=== PATIENT | male | born 1980 | race African-American/Black ===

== ENCOUNTER 2020-10-08 13:17 | Inpatient (IN) | payer OTHER ==
[~2020-10-08] VITALS: Ht 185.4 cm; Wt 95.5 kg
[~2020-10-08 13:17] MED LIST: GLUCOPHAGE500 MG/TAB PO
[2020-10-08 16:18] LABS: HEMOGLOBIN 13.3 g/dl (13.5-18.0); MEAN CELL VOLUME 81 fl (80.0-100.0); MEAN CORPUSCULAR HEMOGLOBIN 27 pg (27.0-31.0); MEAN CORPUSCULAR HGB CONC 33 g/dl (33.0-37.0); MEAN PLATELET VOLUME 10.3 fl (7.4-10.4); PLATELET COUNT 466 K/mm3 (130-400); RED BLOOD COUNT 4.93 M/mm3 (4.20-5.60); REDCELL DISTRIBUTION WIDTH-CV 11.5 % (11.5-14.5)
[2020-10-08 16:29] LABS: ALANINE AMINOTRANSFERASE 24 U/L (4-49); ALBUMIN 3.8 gm/dL (3.5-5.0); ALKALINE PHOSPHATASE 184 U/L (50-136); ANION GAP 13 mmol/L (7-16); AST,SGOT 27 U/L (15-37); BILIRUBIN,TOTAL 0.7 mg/dL (0.0-1.0); BLOOD UREA NITROGEN 24 mg/dL (9-20); CALCIUM 9.3 mg/dL (8.4-10.2); CARBON DIOXIDE 28 mmol/L (22-30); CHLORIDE 90 mmol/L (98-107); CREATININE, serum 1.08 (0.66-1.25); POTASSIUM 4.8 mmol/L (3.4-5.0); SODIUM 131 mmol/L (137-145); TOTAL PROTEIN 8.2 gm/dL (6.4-8.2)
[2020-10-08 16:32] LABS: GLUCOSE 477 mg/dL (74-106)
[2020-10-08 16:44] LABS: TROPONIN-I < 0.012 ng/mL (0.000-0.035)
[2020-10-08 16:47] LABS: BAND 3 % (0-10); EOSINOPHIL 1 % (0-4); LYMPHOCYTE 7 % (20.0-51.0); NEUTROPHILS 86 % (42.0-75.2); PLATELET ESTIMATE INCREASED (NORMAL)
[2020-10-08 17:30] LABS: ARTERIAL BLD GAS O2 SATURATION 96.8 % (92-100); ARTERIAL BLD GAS TCO2 CT 22.1; ARTERIAL BLOOD GAS BASE EXCESS -2.5 (-2-2); ARTERIAL BLOOD GAS HCO3 21.1 meq/L (22-26); ARTERIAL BLOOD GAS PCO2 33.1 mmHg (35-45); ARTERIAL BLOOD GAS PO2 87.8 mmHg (80-100); ARTERIAL BLOOD GAS pH 7.42 (7.35-7.45)
[2020-10-08 19:35] LABS: COLLECTION METHOD CLEAN CATCH
[2020-10-08 19:42] LABS: MUCOUS Present /lpf; PH 5 (5-8); SQUAMOUS EPITHELIAL None Seen /hpf; URINE APPEARANCE Clear; URINE BACTERIA None Seen /hpf; URINE BILIRUBIN Negative (NEGATIVE); URINE BLOOD 2+ (NEGATIVE); URINE COLOR Straw; URINE GLUCOSE 3+ (NEGATIVE); URINE KETONE 1+ (NEGATIVE); URINE LEUKOCYTE ESTERASE Trace (NEGATIVE); URINE NITRATE Negative (NEGATIVE); URINE PROTEIN(semi-quant) 1+ (NEGATIVE); URINE UROBILINOGEN Negative (NEGATIVE)
--- NOTE | 2020-10-08 21:40 | NUR ---
RECEIVED REPORT FROM ED NURSEJOHNSON. AWAITING PATIENT'S ARRIVAL.
--- NOTE | 2020-10-08 22:00 | NUR ---
PATIENT ARRIVED/ADMITTED TO ROOM 329 PER CART ACCOMPANIED BY ER PCT. IV ABX INFUSING TO [facility] IV SITE WITH NO PROBLEMS AT THIS TIME.
[2020-10-08 22:11] VITALS: BP 153/92; PULSE 111; TEMP 98.5
--- NOTE | 2020-10-08 22:36 | NUR ---
Vancomycin Initial Dosing Pharmacy Note Ordering provider: Tk Yen J., MD 39 yo M Indication: SSTI (5 DAYS) goal: 10-20 Hx: None identified BMI: 29.1 Wt: 100 kg SCr: 1.08 estCrCl ~131 ml/min t 1/2~ 6h Tmax: 98.9 WBC: 23.3 LA WNL CRP: 41.5 Micro - PENDING LE CT reporting edematous semitendinousus muscle with fluid collection, possible abscess/phlegmon Pt loaded with vanco 2gm (20mg/kg) x1. WILL THEN START A MAINTENANCE REGIMEN OF 1.25 GM Q8H PT IS YOUNG WITH GOOD RENAL FUNCTION. WILL MONITOR MICRO AND RENAL FOR NEED TO ADJUST CURRENT THERAPY. THANK YOU FOR THIS DOSING CONSULT!
[2020-10-08 23:56] VITALS: BP 147/77; PULSE 113; TEMP 99.7
[2020-10-09 04:18] VITALS: BP 156/86; PULSE 112; TEMP 100.2
[2020-10-09 06:43] LABS: HEMOGLOBIN 12.1 g/dl (13.5-18.0); MEAN CELL VOLUME 82 fl (80.0-100.0); MEAN CORPUSCULAR HEMOGLOBIN 27 pg (27.0-31.0); MEAN CORPUSCULAR HGB CONC 33 g/dl (33.0-37.0); MEAN PLATELET VOLUME 10.3 fl (7.4-10.4); PLATELET COUNT 446 K/mm3 (130-400); RED BLOOD COUNT 4.45 M/mm3 (4.20-5.60); REDCELL DISTRIBUTION WIDTH-CV 11.7 % (11.5-14.5)
[2020-10-09 06:57] LABS: ALBUMIN 3.4 gm/dL (3.5-5.0); BILIRUBIN,TOTAL 0.6 mg/dL (0.0-1.0); CALCIUM 8.7 mg/dL (8.4-10.2); CREATININE, serum 0.92 (0.66-1.25); POTASSIUM 4.5 mmol/L (3.4-5.0); TOTAL PROTEIN 7.3 gm/dL (6.4-8.2)
--- NOTE | 2020-10-09 07:00 | NUR ---
Report received from MCKENZIE Ford. PT in bed resting, denies needs, IVF to RA/C. Will continue to monitor
--- NOTE | 2020-10-09 07:00 | NUR ---
CHANGE OF SHIFT REPORT GIVEN TO DAY SHIFT NURSE, CAT
[2020-10-09 07:23] LABS: HEMATOCRIT 36.6 % (42.0-52.0)
[2020-10-09 07:35] LABS: BAND 3 % (0-10); LYMPHOCYTE 4 % (20.0-51.0); NEUTROPHILS 81 % (42.0-75.2); PLATELET ESTIMATE INCREASED (NORMAL)
[2020-10-09 07:49] VITALS: BP 107/68; BP 165/91; PULSE 107; PULSE 82; TEMP 98.4
--- NOTE | 2020-10-09 08:58 | NUR ---
Assessment charted.PT c/o pain at 10/10 to RLE, appears calm and alert in bed and not grimacing or crying out. PRN pain meds given. Discussed hbA1C levels as well as WBC and sodium lab values. Pt has tenderness and warmth to R hamstring area. IV antibiotics to R A/C. Discussed no free water to help bring up sodium level. Will continue to monitor.
[2020-10-09 12:08] VITALS: BP 163/87; PULSE 111; TEMP 97.6
--- NOTE | 2020-10-09 14:32 | NUR ---
Called Kayla BECKFORD regarding pain medications, order received for other options.
--- NOTE | 2020-10-09 14:58 | NUR ---
Initial visit; Patient thanked Assistant Director Of Public Works for looking in on him and offering God's blessings.
--- NOTE | 2020-10-09 15:01 | NUR ---
Logging Tractor Operator met with the patient to complete intake. The patient lives alone in [place]. The patient denies DME use and is independent with ADLs. The patient has a new patient appointment in October at [facility] and believes it is Dr. Shirley. The patient receives medications from [facility]. The patient does not have advanced directives. He his parents live locally, [facility]. The patient's brother will provide transporation at discharge. ELIZABETH contacted ALESIA Houser with [facility] regarding patient appointment, left message. There are no additional needs at this time.
--- NOTE | 2020-10-09 15:28 | NUR ---
Notified pt of plan for transfer if bed available. Pt calling family to update them. Will continue to monitor.
--- NOTE | 2020-10-09 16:31 | NUR ---
Kayla CAIN FOREIGN POLICY OFFICER in to visit patient at this time and update with current transfer status. Waiting to hear back from [facility] and [facility]. Pt feels he is good with this plan but is feeling very anxious about all of this news. Resting in bed, feels PO pain pills manage pain better. Denies needs, will continue to monitor and give bedside shift report to nightshift nruse who will resume care.
[2020-10-09 16:50] VITALS: BP 136/85; PULSE 102; TEMP 99.3
--- NOTE | 2020-10-09 18:28 | NUR ---
Pt resting in bed, doing well, aware of no transfer to [facility] and awaiting response from [facility]. Will give bedside shift report to nightshift nurse who will resume care.
--- NOTE | 2020-10-09 18:45 | NUR ---
PT REPORTS PAIN LEVEL 7-8/10 RT THIGH. MS 2MG IV GIVEN FOR BREAKTHROUGH PAIN. NO NUMBNESS OR TINGLING TO RLE. FOOT WTT. IMMEDIATE CAP REFILL.
[2020-10-09 20:39] VITALS: BP 148/81; PULSE 108; TEMP 100.3
[2020-10-09 23:25] VITALS: BP 147/89; PULSE 112; TEMP 100.1
--- NOTE | 2020-10-10 01:08 | NUR ---
GAVE TYLENOL TO HOLD OVER TILL NEXT NORCO DUE. TEMP 100.3. ENC COUGH DEEP BREATH. PROVIDED WRITTEN EDUCATION MULTIPLE TOPICS. PT REORTS URINE STREAM IS SLOW. YELLOW AND CLEAR. NON ODOROUS. DENIES BLADDER RETENTION.
[2020-10-10 04:29] VITALS: BP 154/92; PULSE 110; TEMP 98.7
[2020-10-10 08:48] VITALS: BP 159/99; PULSE 105; TEMP 98.8
[2020-10-10 13:39] VITALS: BP 155/97; PULSE 100; TEMP 99.2
[2020-10-10 15:47] VITALS: BP 160/96; PULSE 102; TEMP 99
--- NOTE | 2020-10-10 16:55 | NUR ---
HOSPITALIST AT BEDSIDE. SEE ORDERS.
[2020-10-10 17:20] LABS: HEMOGLOBIN 11.3 g/dl (13.5-18.0); MEAN CELL VOLUME 81 fl (80.0-100.0); MEAN CORPUSCULAR HEMOGLOBIN 28 pg (27.0-31.0); MEAN CORPUSCULAR HGB CONC 34 g/dl (33.0-37.0); MEAN PLATELET VOLUME 10.1 fl (7.4-10.4); PLATELET COUNT 413 K/mm3 (130-400); REDCELL DISTRIBUTION WIDTH-CV 11.7 % (11.5-14.5)
[2020-10-10 17:34] LABS: BILIRUBIN,TOTAL 0.4 mg/dL (0.0-1.0); CALCIUM 8.6 mg/dL (8.4-10.2); CREATININE, serum 0.92 (0.66-1.25); POTASSIUM 4.3 mmol/L (3.4-5.0); TOTAL PROTEIN 6.7 gm/dL (6.4-8.2)
[2020-10-10 17:38] LABS: BAND 4 % (0-10); EOSINOPHIL 1 % (0-4); LYMPHOCYTE 4 % (20.0-51.0); NEUTROPHILS 80 % (42.0-75.2); PLATELET ESTIMATE INCREASED (NORMAL)
[2020-10-10 18:02] LABS: C-REACTIVE PROTEIN 41.2 mg/dL (0.0-0.9)
--- NOTE | 2020-10-10 18:30 | NUR ---
DURING SHIFT REPORT W/ SANDY FRANCIS RN , DR GIMENEZ HERE WITH NEW VERBAL ORDERS. SEE INSULIN ORDERS. PT REPORTS PAIN LEVEL IS WELL CONTROLLED AT THIS TIME WHILE RESTING. ACCUCHECK PRIOR TO PM MEAL WAS 345.
--- NOTE | 2020-10-10 19:35 | NUR ---
RECHECKED ACCUCHECK 1HR POST LAST INSULIN GIVEN AND NOTIFIED DR GIMENEZ. NEW ORDERS FOR NOVOLOG 10UNITS IV. GAVE INCREASED DOSE OF LEVEMIER SQ AT THIS TIME. PT ASYMPTOMATIC OF HYPERGLYCEMIA. GAVE NORCO PER REQUEST POST AMB TO BR. VOIDING 450CC CLEAR YELLOW URINE W/O DIFFICULTY.
[2020-10-10 20:00] VITALS: BP 153/91; PULSE 105; TEMP 99.1
--- NOTE | 2020-10-10 20:30 | NUR ---
10 UNITS IV GIVEN BY JOSE M CHA RN.
--- NOTE | 2020-10-10 21:30 | NUR ---
ACCUCHECK 1 HR POST 10UNITS NOVOLOG IV GIVEN- 180.
[2020-10-10 22:58] VITALS: BP 13/81; BP 130/81; PULSE 104; TEMP 99.2
--- NOTE | 2020-10-10 23:39 | NUR ---
PT RESTING QUIETLY. NO DISTRESS.
[2020-10-11 04:00] VITALS: BP 156/95; PULSE 102; TEMP 99.1
--- NOTE | 2020-10-11 06:15 | NUR ---
PT SLEEPING. NO DISTRESS. DR LYLE HERE TO VISIT WITH PT.
[2020-10-11 07:27] VITALS: BP 147/94; PULSE 95; TEMP 97.9
[2020-10-11 09:51] LABS: MEAN CELL VOLUME 81 fl (80.0-100.0); MEAN CORPUSCULAR HEMOGLOBIN 27 pg (27.0-31.0); MEAN CORPUSCULAR HGB CONC 34 g/dl (33.0-37.0); MEAN PLATELET VOLUME 9.8 fl (7.4-10.4); PLATELET COUNT 434 K/mm3 (130-400); RED BLOOD COUNT 4.01 M/mm3 (4.20-5.60); REDCELL DISTRIBUTION WIDTH-CV 11.9 % (11.5-14.5)
[2020-10-11 10:04] LABS: ALBUMIN 2.9 gm/dL (3.5-5.0); BILIRUBIN,TOTAL 0.4 mg/dL (0.0-1.0); CALCIUM 8.5 mg/dL (8.4-10.2); CREATININE, serum 1.03 (0.66-1.25); POTASSIUM 4.1 mmol/L (3.4-5.0); TOTAL PROTEIN 6.7 gm/dL (6.4-8.2)
[2020-10-11 10:22] LABS: HEMATOCRIT 32.6 % (42.0-52.0)
--- NOTE | 2020-10-11 10:35 | NUR ---
Received call from lab with critical WBC count of 22.8. This was called to Dr. Cline and she voiced understanding and will see patient. No changes at this time.
--- NOTE | 2020-10-11 11:01 | NUR ---
Did assessment on patient and observed two small calloused/ulcers on the plantar portion of right foot and one in between the 2nd/3rd digits of toes to right foot. Sock was stuck to one area with blood and this nurse cleaned, patted dry and applied Aquacel AG over open areas and secured with bandaids. Left foot had one area to plantar portion of foot that was also calloused and slightly open. Did the same above dressing to area. This was reported to Dr. Jeong. This patient is also on a Free Water Restriction. This was added to the Diet order. Patient has been drinking his Power Caitlyn and Gatorade and has not been drinking any free water. Will continue to monitor.
[2020-10-11 11:05] VITALS: BP 147/93; PULSE 98; TEMP 98.3
[2020-10-11 11:20] LABS: BAND 10 % (0-10); EOSINOPHIL 4 % (0-4); LYMPHOCYTE 5 % (20.0-51.0); NEUTROPHILS 74 % (42.0-75.2)
[2020-10-11 11:21] LABS: PLATELET ESTIMATE INCREASED (NORMAL)
[2020-10-11 16:00] VITALS: BP 158/90; PULSE 102; TEMP 98.3
[2020-10-11 19:35] VITALS: BP 145/88; PULSE 99; TEMP 99.5
--- NOTE | 2020-10-11 20:40 | NUR ---
Patient in bed resting. Alert and oriented x 3. Assessment complete. States pain to right thigh 5/10. Right thigh is firm to touch. Patient states it is better than previous days. Edema noted to RLE. INT to right AC. Denies further needs at this time.
[2020-10-12] VITALS (7 sets, daily range): BP systolic 145–168; BP diastolic 85–97; PULSE 92–102; TEMP 97.7–99.3
--- NOTE | 2020-10-12 01:23 | NUR ---
Patient up to restroom, stand by assist. Denies further needs at this time. Requested pain meds for pain 03/27, medication given at this time.
--- NOTE | 2020-10-12 04:40 | NUR ---
Patient reports pain 6/10 to right thigh, medicaitions given at this time. Denies further needs at this time.
--- NOTE | 2020-10-12 05:47 | NUR ---
Patient has done well throughout the night. Minimal needs. Antibiotics infusing intermittently throughout the night. Has been up to restroom with SBA. Pain medications given for right thigh pain. Denies further needs at this time. Will report off to day shift.
--- NOTE | 2020-10-12 07:00 | NUR ---
Report received from MCKENZIE Rodriguez. PT in bed resting with eyes closed, will continue to monitor.
[2020-10-12 07:31] LABS: HEMOGLOBIN 10.9 g/dl (13.5-18.0); MEAN CELL VOLUME 82 fl (80.0-100.0); MEAN CORPUSCULAR HEMOGLOBIN 26 pg (27.0-31.0); MEAN CORPUSCULAR HGB CONC 32 g/dl (33.0-37.0); MEAN PLATELET VOLUME 9.7 fl (7.4-10.4); PLATELET COUNT 466 K/mm3 (130-400); RED BLOOD COUNT 4.14 M/mm3 (4.20-5.60); REDCELL DISTRIBUTION WIDTH-CV 11.9 % (11.5-14.5)
[2020-10-12 07:40] LABS: CALCIUM 8.6 mg/dL (8.4-10.2); CREATININE, serum 1.64 (0.66-1.25); POTASSIUM 3.8 mmol/L (3.4-5.0)
[2020-10-12 07:54] LABS: HEMATOCRIT 33.8 % (42.0-52.0)
--- NOTE | 2020-10-12 09:25 | NUR ---
Assessment charted. Pt in bed resting, diane to get up to bathroom with walker, very little assistance required but did not put much weight bearing on RLE. R hamstring is very tight and tender. R and L bottom of feet ulcers/wounds by toes, changed dressing with dry silver and bandaid. IVF to R A/C. Cleared to drink water ad dorota. PRN pain meds given per request for pain of 5/10. Will continue to monitor.
[2020-10-12 10:54] LABS: BAND 2 % (0-10); LYMPHOCYTE 9 % (20.0-51.0); NEUTROPHILS 85 % (42.0-75.2); PLATELET ESTIMATE INCREASED (NORMAL)
--- NOTE | 2020-10-12 18:34 | NUR ---
Pt has rested off and on today, PRN pain meds as requested over shift. Resting in bed, eating and drinking well, very happy to have water again. Will give bedside shift report to nightshift nurse who will resume care.
--- NOTE | 2020-10-12 19:18 | NUR ---
PT ASLEEP IN BED. DID NOT WAKE DURING SHIFT REPORT. IV FLUIDS INFUSING AT 125ML/HR IN RIGHT AC. VANCO STILL INFUSING.
[2020-10-13] VITALS (8 sets, daily range): BP systolic 140–191; BP diastolic 82–104; PULSE 88–106; TEMP 97.8–98.8
[2020-10-13 07:00] LABS: HEMOGLOBIN 10.2 g/dl (13.5-18.0); MEAN CELL VOLUME 83 fl (80.0-100.0); MEAN CORPUSCULAR HEMOGLOBIN 26 pg (27.0-31.0); MEAN CORPUSCULAR HGB CONC 32 g/dl (33.0-37.0); MEAN PLATELET VOLUME 9.6 fl (7.4-10.4); PLATELET COUNT 457 K/mm3 (130-400); RED BLOOD COUNT 3.89 M/mm3 (4.20-5.60); REDCELL DISTRIBUTION WIDTH-CV 11.9 % (11.5-14.5)
[2020-10-13 07:24] LABS: HEMATOCRIT 32.3 % (42.0-52.0)
[2020-10-13 07:25] LABS: CALCIUM 8.1 mg/dL (8.4-10.2); CREATININE, serum 1.66 (0.66-1.25)
--- NOTE | 2020-10-13 08:06 | NUR ---
Assessment completed at beginning of shift. Pt resting in bed with right leg at an outward angle. NS infusing in L AC at 125ml/hr. Receives Zosyn and Vanco this shift. Request and given [place] for right leg pain rated between 5-9. Given Morphine 2mg IV push x1. Ambulates to BR with stand by assist. Accu checks ACHS and charted. Had discussion on good diabetic care.
[2020-10-13 08:47] LABS: BAND 1 % (0-10); EOSINOPHIL 2 % (0-4); LYMPHOCYTE 10 % (20.0-51.0); NEUTROPHILS 81 % (42.0-75.2); OVALOCYTES 1+; PLATELET ESTIMATE INCREASED (NORMAL)
--- NOTE | 2020-10-13 08:52 | NUR ---
CALLED AND MESSAGE LEFT REGARDING PATIENT CONSULT FOR A BUMP IN CREATININE.
--- NOTE | 2020-10-13 09:25 | NUR ---
PATIENT SHIFT ASSESSMENT COMPLETED AT THIS TIME. RIGHT THIGH PALPATED AND POSTERIOR THIGH IS FIRM, WARM TO THE TOUCH AND PAINFUL. PATIENT REPORTING THE PAIN IS MUCH IMPROVED WITH THE MEDICATION REGIMEN VS WHEN HE CAME IN. POSITIVE PEDAL PULSES EQUAL BILATERALLY. PATIENT DENIES PAIN AND TENDERNESS IN BILATERAL CALVES. PATIENTS BP IS ELEVATED THIS MORNING. SCHEDULED METOPROLOL GIVEN AND PRN IV HYDRALAZINE GIVEN FOR BP OF 177/93. WILL CONTINUE TO MONITOR.
--- NOTE | 2020-10-13 10:16 | NUR ---
BLOOD PRESSURE RE-CHECKED AFTER PRN DOSE OF HYDRALAZINE. BP NOW 163/94. WILL CONTINUE TO MONITOR.
[2020-10-13 14:11] LABS: COLLECTION METHOD CLEAN CATCH
[2020-10-13 14:22] LABS: MUCOUS Present /lpf; PH 5 (5-8); SQUAMOUS EPITHELIAL None Seen /hpf; URINE APPEARANCE Hazy; URINE BACTERIA Rare /hpf; URINE BILIRUBIN Negative (NEGATIVE); URINE BLOOD Negative (NEGATIVE); URINE COLOR Yellow; URINE GLUCOSE 1+ (NEGATIVE); URINE KETONE Negative (NEGATIVE); URINE LEUKOCYTE ESTERASE Negative (NEGATIVE); URINE NITRATE Negative (NEGATIVE); URINE PROTEIN(semi-quant) Negative (NEGATIVE); URINE RBC 0-2 /hpf; URINE UROBILINOGEN Negative (NEGATIVE)
--- NOTE | 2020-10-13 17:40 | NUR ---
TORIN HILL NOTIFIED THAT THE PATIENTS BLOOD PRESSURE REMAINED ELEVATED AFTER THE PATIENT BEING STARTED ON LISINIPRIL THIS AFTERNOON. PATIENT GIVEN SECOND IV DOSE OF PRN HYDRALAZINE FOR ELEVATED BLOOD PRESSURE. WILL CONTINUE TO MONITOR.
--- NOTE | 2020-10-13 18:31 | NUR ---
EVENING DOSE OF NOVOLOG REFUSED. PATIENT STATES THAT HE ISN'T HUNGRY AND DOSEN'T WANT TO DROP HIS BLOOD SUGARS TOO LOW. PATIENT DENIES NAUSEA AT THIS TIME, AND REPORTS THAT HIS PAIN IS WELL CONTROLLED AT THIS TIME.
--- NOTE | 2020-10-13 20:30 | NUR ---
MANUAL BP 170/90. PT VERBALIZED HIS "ANXIETY" LEVEL IS THROUGH THE ROOF, "MAYBE THAT IS WHY MY B/P IS SO HIGH". PAIN LEVEL 7/10 TO RT POSTERIOR THIGH. WILL MEASURE THIGH NEXT TIME UP TO BR. PT FEELS LIKE IS IT LARGER AND MORE FIRM BUT OVER ALL PAIN THROUGH THE DAY HAS BEEN LESS. ACCUCHECK 181. HE RELATED REFUSED PM MEAL WANTED CEREAL- CHEERIOS/CORNFLAKES.
[2020-10-14] VITALS (8 sets, daily range): BP systolic 129–190; BP diastolic 82–111; PULSE 86–101; TEMP 97.7–98.5
--- NOTE | 2020-10-14 | NUR ---
MEASURED THIGH AT THIS TIME = 25CM. TRANSFERRED PT TO . GOT PT OUT OF HIS ROOM FOR AWHILE. VERY TALKATIVE AND IN BETTER SPIRITS. BACK TO BED.
[2020-10-14 07:46] LABS: HEMOGLOBIN 10.3 g/dl (13.5-18.0); MEAN CELL VOLUME 83 fl (80.0-100.0); MEAN CORPUSCULAR HEMOGLOBIN 27 pg (27.0-31.0); MEAN CORPUSCULAR HGB CONC 32 g/dl (33.0-37.0); MEAN PLATELET VOLUME 9.3 fl (7.4-10.4); PLATELET COUNT 453 K/mm3 (130-400); RED BLOOD COUNT 3.85 M/mm3 (4.20-5.60)
--- NOTE | 2020-10-14 08:00 | NUR ---
PATIENT IS ORIENTED X4 BUT DROWSY THIS AM. VSS. DENIES PAIN AT REST. RLE POSTERIOR HAM STRING IS SWOLLEN AND TENDER TO TOUCH. PATIENT REPORTS SEVERE PAIN WITH AMBULATION. PT CONSULTED. IV ABX INFUSING VIA PUMP INTO LEFT AC IV. AM BS WAS 236, INSULIN GIVEN ALONG WITH AM MEDS. HEAD TO TOE ASSESSMENT COMPLETE. PATIENT RESTING UP IN BED WITH LIGHTS TURNED DOWN. CALL LIGHT IN REACH.
[2020-10-14 08:08] LABS: C-REACTIVE PROTEIN 8.4 mg/dL (0.0-0.9); CALCIUM 8.3 mg/dL (8.4-10.2); CREATININE, serum 1.56 (0.66-1.25); POTASSIUM 4.3 mmol/L (3.4-5.0)
[2020-10-14 08:48] LABS: BAND 10 % (0-10); EOSINOPHIL 3 % (0-4); LYMPHOCYTE 10 % (20.0-51.0); MYELOCYTE 1 % (0-0); NEUTROPHILS 69 % (42.0-75.2); PLATELET ESTIMATE INCREASED (NORMAL)
--- NOTE | 2020-10-14 14:19 | NUR ---
SW met with the patient to follow up and review d/c plan. The patient confirms that he lives alone in [place]. His parents also live in [place]. The patient reports that he would like to and plans on returning home upon discharge. He states that he feels comfortable getting around at home and has great support from his family. He states that he does not have a FWW and will need one, if recommended. SW to continue to follow.
--- NOTE | 2020-10-14 19:58 | NUR ---
PT HAD BEEN UP TO BR AND REQUESTING PAIN MED. B/P RECHECKED MANUALLY 190/96. HAD APRESOLINE AT 1740.
--- NOTE | 2020-10-14 20:00 | NUR ---
PT RESTING IN BED. REQUEST PAIN MED FOR RT POSTERIOR THIGH PAIN. SEE MAR. MEASURED 75CM TONIGHT. USING WALKER TO AMB TO BR. INDEPENDENT IN ROOM. IVFS RESTARTED NS 125CC/\HR TO LT FA.
[2020-10-15 03:15] VITALS: BP 160/86; PULSE 94; TEMP 98.3
[2020-10-15 07:59] VITALS: BP 178/103; PULSE 88; TEMP 97.7
[2020-10-15 09:26] LABS: HEMOGLOBIN 10.3 g/dl (13.5-18.0); MEAN CELL VOLUME 83 fl (80.0-100.0); MEAN CORPUSCULAR HEMOGLOBIN 27 pg (27.0-31.0); MEAN CORPUSCULAR HGB CONC 32 g/dl (33.0-37.0); MEAN PLATELET VOLUME 8.9 fl (7.4-10.4); PLATELET COUNT 429 K/mm3 (130-400); RED BLOOD COUNT 3.87 M/mm3 (4.20-5.60)
[2020-10-15 09:30] LABS: CALCIUM 8.5 mg/dL (8.4-10.2); CREATININE, serum 1.62 (0.66-1.25); POTASSIUM 4.5 mmol/L (3.4-5.0)
[2020-10-15 09:43] LABS: HEMATOCRIT 32.2 % (42.0-52.0)
[2020-10-15 10:17] LABS: BAND 3 % (0-10); EOSINOPHIL 3 % (0-4); LYMPHOCYTE 8 % (20.0-51.0); NEUTROPHILS 75 % (42.0-75.2)
[2020-10-15 10:18] LABS: HYPOCHROMIA 1+; PLATELET ESTIMATE INCREASED (NORMAL)
[2020-10-15 10:20] LABS: SCHISTOCYTES 1+; SPHEROCYTE 1+
[2020-10-15 10:21] LABS: HELMET CELLS 1+
[2020-10-15 11:32] VITALS: BP 182/101; PULSE 85; TEMP 98.3
--- NOTE | 2020-10-15 13:24 | NUR ---
PATIENT CALLED OUT C/O STOMACH ACHE AND REPORTS HE HAD AN EPISODE OF DIARRHEA. PATIENT REPORTS THIS IS THE FIRST TIME HE HAS HAD DIARRHEA SINCE BEING ADMITTED. GAVE IV ZOFRAN. YULI SCHEDULED NATALIN. WILL MONITOR.
[2020-10-15 14:46] VITALS: BP 165/92
[2020-10-15 14:50] LABS: CK total - for Isoenzymes 383 U/L (39 - 308)
[2020-10-15 16:27] VITALS: BP 173/90; PULSE 94; TEMP 98.4
--- NOTE | 2020-10-15 19:21 | NUR ---
PT RESTING IN BED WITH IV FLUIDS INFUSING. ASSIST UP TO BR. TOE TOUCH WEIGHT TO RIGHT LE. DENIES ANY NEEDS AT THIS TIME.
[2020-10-15 21:26] VITALS: BP 182/98; PULSE 96; TEMP 98.7
[2020-10-16 00:26] VITALS: BP 170/98; PULSE 89; TEMP 98.6
[2020-10-16 04:36] VITALS: BP 175/108; PULSE 95; TEMP 99
[2020-10-16 07:03] LABS: MEAN CELL VOLUME 83 fl (80.0-100.0); MEAN CORPUSCULAR HGB CONC 32 g/dl (33.0-37.0); PLATELET COUNT 431 K/mm3 (130-400); RED BLOOD COUNT 3.72 M/mm3 (4.20-5.60)
[2020-10-16 07:04] LABS: HEMATOCRIT 30.7 % (42.0-52.0); HEMOGLOBIN 9.8 g/dl (13.5-18.0); MEAN CORPUSCULAR HEMOGLOBIN 26 pg (27.0-31.0)
[2020-10-16 07:09] VITALS: BP 182/104; PULSE 88; TEMP 98.6
[2020-10-16 07:11] LABS: CALCIUM 8.2 mg/dL (8.4-10.2); CREATININE, serum 1.65 (0.66-1.25)
[2020-10-16 07:15] LABS: IRON,SERUM 30 ug/dL (35-150)
[2020-10-16 07:24] LABS: TOTAL IRON BINDING CAPACITY 202 ug/dL (261-462)
--- NOTE | 2020-10-16 07:36 | NUR ---
PT HAD A SM, SOFT, SLIGHTLY FORMED BROWN BM. NO ODOR. HELD HIS MIRALAX AND COLACE AT HS. NO OTHER BM'S THIS SHIFT. BP ELEVATED. PT GIVEN APRESOLONE 10MG IV PUSH AT 0723. CALL LIGHT IN REACH. UP TO BR INDEPENDENTLY.
[2020-10-16 08:06] LABS: BAND 2 % (0-10); EOSINOPHIL 3 % (0-4); LYMPHOCYTE 11 % (20.0-51.0); NEUTROPHILS 80 % (42.0-75.2)
[2020-10-16 08:07] LABS: PLATELET ESTIMATE NORMAL (NORMAL)
[2020-10-16 09:19] LABS: RETIC # 0.05 M/mm3 (0.02-0.16); RETIC % 1.4 % (0.5-3.52)
[2020-10-16] MEDS ORDERED: AMOXICILLIN 8751 TAB PO (09:26)
[2020-10-16] MEDS ORDERED: TOPROL XL 50MG50 MG PO (09:26)
[2020-10-16] MEDS ORDERED: NORVASC 5MG5 MG/TAB PO (09:27)
[2020-10-16] MEDS ORDERED: ZESTRIL 10MG10 MG PO (09:27)
[2020-10-16] MEDS ORDERED: GLUCOTROL 5M5 MG/TAB PO (09:27)
[2020-10-16] MEDS ORDERED: FREESTYLE PREC1 EAC5 MC (09:28)
[2020-10-16] MEDS ORDERED: GLUCOSE TEST ST1 DEV MC (09:29)
--- NOTE | 2020-10-16 09:41 | NUR ---
Patient resting in bed following working with therapy. Will continue to monitor.
[2020-10-16 10:57] VITALS: BP 167/89; PULSE 89; TEMP 98.2
--- NOTE | 2020-10-16 11:00 | NUR ---
Discussed the need to take blood pressures twice a day and contacted pharmacy to see what blood pressure cuffs were available for him to purchase. Patient given a print out to review. Patient currently resting in bed, call light in reach and bed alarm set. Will continue to monitor.
--- NOTE | 2020-10-16 11:53 | NUR ---
The patient is to discharge home today, 10/16. The patient is needing crutches and PT worked with him to learn to use them. The patient would like to picker operator and purchase his own crutches and not go through insurance. ELIZABETH contacted [facility], [facility], and [facility] for the patient, and john is around $30. [facility] is the only place that does not have crutches at this time. ELIZABETH informed the patient. The patient will be picked up by family. There are no additional needs.
--- NOTE | 2020-10-16 12:40 | NUR ---
Patient Health Summary, Discharge Summary and Home meds printed and reviewed with patient. Stressed importance of follow up appointments. Gave quotes from Patient's pharmacy, [facility] on blood pressure cuff prices. Patient worked with PT to be evaluated for crutches prior to being discharged. SW provided information on crutches for patient. Patient was transported via wheelchair by [employer] and seatbelted for ride home. Patient denied any questions.
== END 2020-10-16 12:45 | disposition home or self-care (01) | DRG 555 ==
LOC: COL.ER 13:17 → JCC 20:21
PROVIDERS: Hospitalist; Internal Medicine Nephrology; Nurse Practitioner Primary Care; Physician Assistant; Student in an Organized Health Care Education/Training Program; ADMIT Emergency Medicine
DX: M60.9 Myositis, unspecified (principal); A48.0 Gas gangrene; R65.10 Systemic inflammatory response syndrome (SIRS) of non-infectious origin without acute organ dysfunction; N17.9 Acute kidney failure, unspecified; N39.0 Urinary tract infection, site not specified; E11.65 Type 2 diabetes mellitus with hyperglycemia; E11.22 Type 2 diabetes mellitus with diabetic chronic kidney disease; D47.3 Essential (hemorrhagic) thrombocythemia; Z20.828 Contact with and (suspected) exposure to other viral communicable diseases; D72.829 Elevated white blood cell count, unspecified; I12.9 Hypertensive chronic kidney disease with stage 1 through stage 4 chronic kidney disease, or unspecified chronic kidney disease; N18.9 Chronic kidney disease, unspecified; D63.1 Anemia in chronic kidney disease; R00.0 Tachycardia, unspecified; B95.61 Methicillin susceptible Staphylococcus aureus infection as the cause of diseases classified elsewhere; R19.7 Diarrhea, unspecified; E78.5 Hyperlipidemia, unspecified; R79.89 Other specified abnormal findings of blood chemistry; R53.81 Other malaise; Z79.4 Long term (current) use of insulin
CPT/HCPCS: OP; 99222-AI; 99232-AI; 99233-AI; 99239; A9585; G0378; J0360; J1650; J1815; J2270; J2405; J2543; J3370; J7030; J7040; J7050; Q9967